=== PATIENT | female | born 1955 | race Caucasian/White ===

== ENCOUNTER → 2022-04-06 12:40 | Outpatient (CLI) | payer MEDICARE, SELFPAY ==
--- NOTE | ~2022-04-06 | MR_ITS ---
EXAMINATION: MR abdomen wo/w con DATE: 04/06/2022 13:54 INDICATION: Hemochromatosis. Elevated AFP. TECHNIQUE: Magnetic resonance imaging (MRI) of the abdomen was performed without and with 12 mL Multi Mikael intravenous contrast. COMPARISON: None. FINDINGS: There is decreased signal intensity in the liver and spleen on in-phase imaging, consistent with iron deposition. There are 4 mm and 10 mm cysts in the liver. The gallbladder, pancreas, gallbladder, adr enal glands, and right kidney are normal. There are peripelvic cysts in left kidney measuring up to 2 .3 cm. There are no dilated loops of bowel. There are no pathologically enlarged lymph nodes. There i s no free intraperitoneal fluid. IMPRESSION: 1. No evidence of malignancy. Reviewed, dictated and finalized at location A.
[2022-04-06 13:11] LABS: Estimated Glomerular Filt Rate > 60
== END ==
PROVIDERS: PCP Internal Medicine Medical Oncology; Visit Provider Internal Medicine Medical Oncology
DX: R77.2 Abnormality of alphafetoprotein (principal); E83.119 Hemochromatosis, unspecified
CPT/HCPCS: 74183; A9577